=== PATIENT | female | born 1995 | race Caucasian/White ===

== ENCOUNTER → 2018-02-19 10:18 | Outpatient (CLI) | payer OTHER, SELFPAY ==
[2018-02-19 10:48] LABS: HCT 39.2 % (36.0-46.0); HGB 12.9 g/dL (12.0-15.5); Mean Corp. HGB Concentration 32.9 g/dL (32.0-36.0); Mean Corpuscular Hemoglobin 28.9 pg (27.0-33.0); Mean Corpuscular Volume 87.9 fL (80-95); Mean Platelet Volume 11.5 fL (8.0-11.0); Platelet Count 279 x1000/uL (130-400); RBC 4.46 m/cumm (4.00-5.20); RBC Distribution Width 14.7 % (11.7-14.6); White Blood Cell Count 6.93 k/cumm (4.4-10.8)
[2018-02-19 11:41] LABS: Iron 55 ug/dL (50-175); Total Iron Binding Capacity 389 ug/dL (250-450)
[2018-02-20 10:31] LABS: Transferrin 278 mg/dL (201-352)
== END ==
PROVIDERS: PCP Pediatrics; Visit Provider Registered Nurse
DX: D64.9 Anemia, unspecified (principal)
CPT/HCPCS: 36415; 85027; 83540; 83550; 84466

== ENCOUNTER 2021-09-03 07:07 | Emergency (ER) | payer OTHER, SELFPAY ==
[2021-09-03 07:20] VITALS: BP 134/72; PULSE 65; RESP 16; TEMP 36.6; O2SAT 99
--- NOTE | 2021-09-03 07:30 | DI.CT_ITS ---
Exam(s) CT ABDOMEN PELVIS W EXAM: CT ABDOMEN PELVIS W CLINICAL HISTORY: worsening nausea vomiting abdominal pain for weeks. TECHNIQUE: Imaging Protocol: Axial computed tomography images with coronal and sagittal reformatted images were created and reviewed CONTRAST MATERIAL: Intravenous: Omnipaque 100cc Oral: None COMPARISON: No exams were available for comparison FINDINGS: VISUALIZED LUNG BASES: No nodules nor pleural effusions evident. ABDOMEN: There is no ascites. LIVER: There are no significant focal hepatic lesions evident. There is no dilatation of intrahepati c ducts. GALLBLADDER/BILIARY: The gallbladder surgically absent. CBD is not dilated. PANCREAS: No evidence of pancreatic mass nor dilatation of the pancreatic duct. SPLEEN: Spleen is not enlarged. No obvious intrasplenic lesions. Splenic and portal veins are paten t. ADRENALS: There are no significant adrenal masses. KIDNEYS:No cysts evident. No solid renal masses. No calculi nor hydronephrosis.. ABDOMINAL AORTA: Abdominal aorta is not enlarged. LYMPH NODES:There is no retroperitoneal nor paraaortic adenopathy. ABDOMINAL WALL: No evidence of significant anterior abdominal wall nor inguinal hernia. GI: There is no evidence of bowel obstruction, free air, nor abscess. PELVIS: GI: No evidence of appendicitis.No evidence of sigmoid diverticulitis. LYMPH NODES: There is no intrapelvic nor inguinal adenopathy. REPRODUCTIVE: Uterus size normal. Left ovary normal size. There is cystic structure in the right ad nexa region measuring approximately 3 x 2 cm, difficult to determine if this is ovarian versus is rel ated to the numerous adjacent unopacified small bowel loops.. It may represent dominant or enlarged follicular cyst in the right ovary. URINARY BLADDER: No calculi nor obvious masses evident OSSEOUS: No significant osseous lesions. Sacroiliac joints appear unremarkable. IMPRESSION: 1. There is a 3 x 2 cm cystic structure in the right adnexa. Difficult to determine if this is relat ed to the numerous unopacified pelvis in this region or is in the right ovary. Suspect that this is a right ovarian cyst. The opposite-left ovary appears unremarkable. Recommend pelvic ultrasound. 2. The gallbladder surgically absent. The CBD is not dilated. 3. Colon is collapsed and difficult to evaluate as there is no oral contrast. There is no evidence o f appendicitis Report called by myself to ER provider RADIATION DOSE DELIVERED: Total DLP DATA REPOSITORY: All CT scans at this facility are submitted to the National Radiology Data Registry (NRDR) Dose Index Registry (DIR) with the [employer] (A[employer]). RADIATION OPTIMIZATION: All CT scans at this facility use at least one of these dose optimization te chniques: automated exposure control; mA and/or kV adjustment per patient size (includes targeted exa ms where dose is matched to clinical indication); or iterative reconstruction.
--- NOTE | 2021-09-03 07:46 | ED.GENADUL_ITS ---
Discharge Plan Disposition Patient Disposition: HOME Condition: Improving Discharge Details Chief Complaint: Abd Prob Clinical Impression: Nausea Primary Care Provider: Sheldon Sarah ED Provider: Dilan Willams Home Meds and New Rx's Prescriptions: No Action albuterol sulfate [ProAir HFA] 8.5 GM HFA aerosol inhaler 2 puff Inhalation Q4H PRN Qty: 1 2RF (DME) Space Chamber Plus 1 EACH spacer Miscellaneous Q4H PRN Qty: 1 0RF Rx Instructions: use with inhaler as directed ondansetron 4 mg tablet,disintegrating 4 mg PO PRN PRN0RF Discharge Instructions Instructions: Acute Nausea and Vomiting (ED) Additional Instructions: Please follow-up with your primary care doctor as scheduled, continue to pursue follow-up with GI at [facility]. If you are going to take the Reglan, pauseZofran use at home. Return to the emergency department for worsening pain nausea vomiting or signs of dehydration. You are found to possibly have an ovarian cyst please follow-up with [facility]. Medical Decision Making 26-year-old female history of recurrent abdominal pain nausea vomiting over the past several years, history of cholecystectomy, presents with abdominal discomfort diffuse in nature, nausea and vomiting over the past 2 weeks mainly in the morning. Intermittent diarrhea. Resting comfortably no acute distress abdomen soft nontender nondistended. Vital signs unremarkable. Consider cyclic vomiting versus gastroparesis versus cannabinoid hyperemesis versus unlikely bowel or obstruction malignancy; no evidence of dehydration however given persistence of the symptomatology will obtain basic labs to assess electrolyte white blood cell count, UA, [id number] urine , CT abdomen pelvis. Likely patient be discharged home and will encourage follow-up with GI specialist. Of note patient has had a remote endoscopy and colonoscopy 08: 56 patient resting comfortably no acute distress. No vomiting department felt better after Reglan. Labs unremarkable urine clear. Evidence of possible ovarian cyst right adnexa. Patient to follow-up primary care doctor and is in the process of receiving referral to GI specialist at [facility]. Home care instructions and return precautions given. Lab Data Lab results narrative: Laboratory Tests Range/Units 09/03/21 09/03/21 09/03/21 07:33 07:33 07:46 WBC (4.4-10.8) 10^3/uL 9.81 RBC (3.93-5.22) 10^6/uL 4.57 Hgb (11.2-15.7) g/dL 13.9 Hct (36.0-46.0) % 41.8 MCV (80-95) fL 91.5 MCH (27.0-33.0) pg 30.4 MCHC (32.0-36.0) % 33.3 RDW (11.7-14.6) % 13.5 Plt Count (130-400) 10^3/uL 258 MPV (8.0-11.0) fL 12.2 H Immature Gran % 0.3 Neutrophils % 82.8 Lymphocytes % 12.3 Monocytes % 4.2 Eosinophils % 0.2 Basophils % 0.2 Nucleated RBC % % 0 Absolute Neutrophils (1.2-6.7) 10^3/uL 8.12 H Absolute Lymphocytes (1.2-3.4) 10^3/uL 1.21 Absolute Monocytes (0.1-0.8) 10^3/uL 0.41 Absolute Eosinophils (0.0-0.7) 10^3/uL 0.02 Absolute Basophils (0.0-0.2) 10^3/uL 0.02 Sodium (136-145) mmol/L 140 Potassium (3.5-5.1) mmol/L 3.8 Chloride (98-107) mmol/L 106 Carbon Dioxide (21.0-32.0) mmol/L 22.6 Anion Gap (3-11) mmol/L 11.4 H BUN (7-18) mg/dL 9 Creatinine (0.55-1.02) mg/dL 0.8 Estimated GFR/1.73 m2 (mL/min/1.73m2) >= 60.00 Glucose (74-106) mg/dL 122 H Calcium (8.5-10.1) mg/dL 9.4 Total Bilirubin (0.2-1.0) mg/dL 0.5 AST (15-37) U/L 13 L ALT (14-59) U/L 18 Alkaline Phosphatase (46-116) U/L 61 Total Protein (6.4-8.2) g/dL 7.1 Albumin (3.4-5.0) g/dL 4.0 Urine Color (Yellow) Yellow Urine Clarity (Clear) Clear Urine pH (5-8) 7.0 Ur Specific Clover (1.005-1.025) 1.015 Urine Protein (Negative) mg/dL Negative Urine Ketones (Negative) mg/dL Negative Urine Blood (Negative) Negative Urine Nitrite (Negative) Negative Urine Bilirubin (Negative) Negative Urine Urobilinogen (Up TO 0.2) EU/dL 0.2 Ur Leukocyte Esterase (Negative) Negative Urine Glucose (Negative) mg/dL Negative HPI General Date/Time Provider Initiated Documentation: 09/03/21 07:32 . HPI Narrative: 26-year-old female history of cholecystectomy, chronic nausea and vomiting over the past several years intermittently will persist for weeks at a time, is currently in the process of obtaining a referral to GI specialist at [facility], endorses nausea and vomiting of the past 2 weeks every morning side throughout the day, patient does use marijuana daily to try to help her symptomatology, denies any urinary symptoms, occasionally will have diarrhea. Related Data Home Medications Medication Instructions Recorded Confirmed albuterol sulfate 90 mcg/actuation 2 puff INHALATION Q4H PRN #1 04/06/17 09/03/21 aerosol inhaler (ProAir HFA) inhaler inhalational spacing device (Space #1 04/06/17 01/29/20 Chamber Plus) ondansetron 4 mg disintegrating 4 mg PO PRN PRN 09/03/21 09/03/21 tablet Previous Rx's Medication Instructions Recorded albuterol sulfate 90 mcg/actuation 2 puff INHALATION Q4H PRN #1 04/06/17 aerosol inhaler (ProAir HFA) inhaler Allergies Allergy/AdvReac Type Severity Reaction Status Date / Time No Known Allergies Allergy Verified 09/03/21 07:23 General Stated Complaint: Abd Prob ALEX: 3 Review of Systems Narrative: Review of Systems Constitutional: negative Eyes: negative ENT: negative Cardiovascular: negative Respiratory: negative Gastrointestinal: Nausea vomiting, abdominal pain : negative Musculoskeletal: negative Skin: negative Neurologic: negative Psych: negative PFSH All Active Problems (Updated 09/03/21 @ 09:00 by Dilan Willams MD) Nausea (Acute) Anxiety (Chronic) Depression (Chronic) Mild intermittent reactive airway disease with wheezing with acute exacerbation (Acute 04/06/17) Colon polyp (Acute 11/15/17) Repeat colonoscopy indicated in 5 years. Last completed 2018 BMI 45.0-49.9, adult (Acute 11/21/17) Childhood overweight, BMI 85-94.9 percentile (Acute 12/29/14) Anemia (Acute 07/05/17) Medical History (Updated 09/03/21 @ 09:00 by Dilan Willams MD) Exercise-induced asthma Low back pain chronic after fall from horse in [address] 2014 inserted. 11/2017 nexplanon removed from L arm. new device inserted in R arm. Obesity UTI (lower urinary tract infection) age 7 Vision problem Surgical History wisdom tooth extraction Family History Mother Healthy adult on routine physical examination Mental disorder Father Healthy adult on routine physical examination Brother Asthma Social History (Updated 04/19/18 @ 09:40 by Dominique Slater RN) Smoking/Tobacco Use Status: Current every day Tobacco Type: e-cigarettes Smoking risk assessment performed?: Yes Alcohol Intake: current Alcohol Intake frequency: a few times a month Drug use: Occasionally Substance use type: marijuana Do you feel safe at home: Yes History History 0 Para Hx # Term Pregnancies Multiple births Hx # Pregnancies Ectopic pregnancies AB induced Hx Number of Living Children AB spontaneous Exam Narrative Exam Narrative: Physical Examination General: alert, awake, cooperative, resting comfortably, no acute distress HEENT: normocephalic, atraumatic; PERRL, EOM intact, conjunctiva normal; no nasal discharge; moist mucous membranes, oral and pharyngeal mucosa normal, tolerating secretions Neck: supple, trachea midline; full ROM Chest: normal to inspection Respiratory: normal respiratory effort, speaking in full sentences, clear to auscultation, no wheezing, rales or rhonchi Cardiac: regular rate, regular rhythm, S1S2 intact, no murmurs rubs or gallops GI: abdomen soft, non-tender, non-distended; no palpable mass or hepatosplenomegaly Skin: no lesions, rashes or trauma appreciated Neuro: AAOx3, normal speech, moving all extremities Psych: Appropriate mood and affect Course Vital Signs Vital signs: Vital Signs Temperature 36.6 C 09/03/21 07:20 Pulse 65 09/03/21 07:20 Respiratory Rate 16 09/03/21 07:20 Blood Pressure 134/72 09/03/21 07:20 Pulse Oximetry 99 09/03/21 07:20 Temperature 36.6 C 09/03/21 07:20 Temperature Source Temporal Artery Scan 09/03/21 07:20 Pulse 65 09/03/21 07:20 Respiratory Rate 16 09/03/21 07:20 Respiratory Effort Non-Labored 09/03/21 07:24 Blood Pressure 134/72 09/03/21 07:20 Blood Pressure Position Sitting 09/03/21 07:20 Pulse Oximetry 99 09/03/21 07:20 Oxygen Delivery Method Room Air 09/03/21 07:20 Oxygen Flow Rate 0 09/03/21 07:20 Pain Level 4 09/03/21 07:20 PAWSS Have you Been Recently Intoxicated or Drunk Within the Last 30 days?: No Have you Ever Experienced Previous Episodes of Alcohol Withdrawal?: No Have you ever Experienced Withdrawal Seizures?: No Have you ever Experienced Delirium Tremens(DT)s?: No Have you ever undergone Alcohol Rehabilitation Treatment (i.e, inpt ot outpatient treatment programs)?: No Have you ever Experienced Blackouts?: No Have you ever Combined Alcohol with other Downers within the last 90 days?: No Have you ever Combined Alcohol with any other Substance of Abuse during the last 90 days?: No Positive Blood Alcohol level on Presentation? [PCS.BAL]: No Evidence of Increased Autonomic Activity (i.e. HR>120, tremor, sweating, agitation, nausea)?: No Result: 0
[2021-09-03 07:55] LABS: Abs Immature Grans 0.03 10^3/uL (0.0-0.06); Absolute Basophil Count 0.02 10^3/uL (0.0-0.2); Absolute Eosinophil Count 0.02 10^3/uL (0.0-0.7); Absolute Lymphocyte Count 1.21 10^3/uL (1.2-3.4); Absolute Monocyte Count 0.41 10^3/uL (0.1-0.8); Absolute Neutrophil Count 8.12 10^3/uL (1.2-6.7); Basophils % 0.2; Eosinophils % 0.2; HCT 41.8 % (36.0-46.0); HGB 13.9 g/dL (11.2-15.7); Immature Grans % 0.3; Lymphocytes % 12.3; MCH 30.4 pg (27.0-33.0); MCHC 33.3 % (32.0-36.0); MCV 91.5 fL (80-95); MPV 12.2 fL (8.0-11.0); Monocytes % 4.2; Neutrophils % 82.8; Nucleated RBC 0 %; Platelet Count 258 10^3/uL (130-400); RBC 4.57 10^6/uL (3.93-5.22); RDW 13.5 % (11.7-14.6); RDW-SD 46.1 fL; WBC 9.81 10^3/uL (4.4-10.8)
[2021-09-03] MEDS: Normal Saline 1,000 ML 1000 ML IV (07:56)
[2021-09-03] MEDS: Metoclopramide 10 MG/2 ML VIAL IVP (07:56)
[2021-09-03 07:57] LABS: Bilirubin Negative (Negative); Blood Negative (Negative); Clarity Clear (Clear); Glucose Negative (Negative); Ketones Negative (Negative); Leukocyte Esterase Negative (Negative); Nitrite Negative (Negative); Specific Gravity 1.015 (1.005-1.025); Urobilinogen 0.2 EU/dL (Up TO 0.2)
[2021-09-03 08:09] LABS: ALT 18 U/L (14-59); AST 13 U/L (15-37); Alkaline Phosphatase 61 U/L (46-116); Anion Gap 11.4 mmol/L (3-11); BUN 9 mg/dL (7-18); Bilirubin, Total 0.5 mg/dL (0.2-1.0); CO2 22.6 mmol/L (21.0-32.0); CREATININE 0.8 mg/dL (0.55-1.02); Calcium 9.4 mg/dL (8.5-10.1); Chloride 106 mmol/L (98-107); Glucose 122 mg/dL (74-106); Potassium 3.8 mmol/L (3.5-5.1); Sodium 140 mmol/L (136-145); Total Protein 7.1 g/dL (6.4-8.2)
[2021-09-03] MEDS: Omnipaque 350 MG/ML 100 ML BTL IJ (08:13)
== END 2021-09-03 09:06 | disposition home or self-care (01) ==
PROVIDERS: Emergency Provider Emergency Medicine; PCP Physician Assistant Medical
DX: R11.2 Nausea with vomiting, unspecified (principal); R10.31 Right lower quadrant pain
CPT/HCPCS: 36415; 80053; 81025; 96361; 96374; 99285; 74177; 81003; 85025; 99284; J2765; J3490

== ENCOUNTER 2023-03-08 19:53 | Outpatient (CLI) | payer BC, SELFPAY ==
[2023-03-08 17:57] LABS: TSH (W/Ref FT4) 2.76 uIU/mL (0.36-3.74)
[2023-03-11 10:35] LABS: Antimullerian Hormone 1.1 ng/mL (0.89-9.9)
== END 2023-03-08 19:54 | disposition home or self-care (01) ==
LOC: LBO 19:54
PROVIDERS: PCP Physician Assistant Medical; Visit Provider Nurse Practitioner Women's Health
DX: N97.9 Female infertility, unspecified (principal); Z31.9 Encounter for procreative management, unspecified
CPT/HCPCS: 36415; 83001; 83520; 84443